=== PATIENT | female | born 1955 | race Caucasian/White ===

== ENCOUNTER 2016-05-23 14:16 | Emergency (ER) | payer OTHER, MEDICARE ==
[~2016-05-23] VITALS: Ht 165.1 cm; Wt 60.0 kg
[~2016-05-23 14:16] MED LIST: ALEN70TA39 PO; DULE100A PO; FURO20 PO; GLUCTAB PO; GUAN2ER PO; LOSA50TA PO; MAGN400 PO; ONDA4; PROT40TA PO; RAPA1TAB PO; SIRO1 PO; VENTAER INH; VITA-13 PO; ZOCO10TA PO
[2016-05-23 14:19] VITALS: BP 149/68; PULSE 69; RESP 14; TEMP 98.4; O2SAT 98
--- NOTE | 2016-05-23 15:14 | RADRPT ---
EXAM DATE/TIME: 05/23/2016 14:34 [place] COMPARISON: No previous studies available for comparison. INDICATIONS : Cough. MEDICAL HISTORY : Chronic obstructive pulmonary disease. Heart murmur. SURGICAL HISTORY : None. ENCOUNTER: Initial ACUITY: 1 day PAIN SCORE: 0/10 LOCATION: Bilateral chest FINDINGS: Right lung is clear. Minimal parenchymal changes are seen in the left base. Heart and pulmonary vas cularity are normal. Portion of bony skeleton visualized is unremarkable. CONCLUSION: Minimal parenchymal changes in left base. This could be an inflammatory process. Basil Hair MD FACR on May 23, 2016 at 15:08 Board Certified Radiologist. This report was verified electronically.
[2016-05-23] MEDS: RESP: ALBUTEROL 2.5 MG/IPRATROPIUM 0.5 MG NEB (SCH) INH ×3 (16:00→16:19)
[2016-05-23] MEDS ORDERED: methylPREDNISolone SOD SUCC 125 MG/2 ML VIAL IVP ONE (16:00)
[2016-05-23] MEDS ORDERED: SODIUM CHLORIDE 0.9% FLUSH 5 ML FLUSH IVF PRN (16:00)
--- NOTE | 2016-05-23 16:05 | PD ---
HPI . Dyspnea Chief Complaint: Respiratory Symptoms Time Seen by Provider: 15:50 Travel History International Travel<30 days: No Contact w/Intl Traveler<30days: No Traveled to known affect area: No History of Present Illness HPI Patient reports pain in her lungs for a week. She is now short of breath. She reports a history of COPD and states that she has inhalers but she has not been using them. She states that the inhalers don't help. She denies any sputum production or fever. PFSH Past Medical History Asthma: No Blood Disorders: No Heart Rhythm Problems: Yes (HEART MUMUR) Cancer: No Cardiac Catheterization: No Cardiovascular Problems: Yes (heart murmur) High Cholesterol: Yes Chemotherapy: No Chest Pain: No Congestive Heart Failure: No COPD: Yes Cerebrovascular Accident: No Diabetes: Yes Patient Takes Glucophage: Yes Diminished Hearing: No Endocrine: No Gastrointestinal Disorders: Yes GERD: Yes Genitourinary: Yes (IGA- NEPHRITIS ) Headaches: No Hypertension: Yes Immune Disorder: No Kidney Stones: No Musculoskeletal: Yes Neurologic: Yes (neuropathy) Psychiatric: No Reproductive: No Respiratory: Yes (COPD) Immunizations Current: Yes Migraines: Yes (Before 2000- None since ) Myocardial Infarction: No Radiation Therapy: No Renal Failure: Yes Seizures: No Sleep Apnea: No Menopausal: Yes Tubal Ligation: Yes Past Surgical History Abdominal Surgery: No AICD: No Arteriovenous Shunt: No Cardiac Surgery: No Coronary Artery Bypass Graft: No Ear Surgery: No Endocrine Surgery: No Eye Surgery: No Genitourinary Surgery: Yes (R KIDNEY TRANSPLANT 2000) Gynecologic Surgery: Yes (TUBAL LIGATION MAR 1982) Insulin Pump: No Joint Replacement: No Neurologic Surgery: No Oral Surgery: No Pacemaker: No Thoracic Surgery: No Other Surgery: Yes Social History Alcohol Use: No Tobacco Use: No Substance Use: No Allergies-Medications (Allergen,Severity, Reaction): Coded Allergies: Neurontin (Verified Allergy, Intermediate, Nausea/Vomiting, 05/23/16) Pramipexole (Verified Adverse Reaction, Severe, vomiting, 05/23/16) Lyrica (Verified Adverse Reaction, Intermediate, vomiting, 05/23/16) Morphine (Verified Adverse Reaction, Intermediate, ITCH, 05/23/16) Reported Meds & Prescriptions Reported Meds & Active Scripts Active Zofran 4 Mg Tab (Ondansetron Hcl) 4 Mg Tab 4 Mg .XX Q8HR PRN Lasix 20 Mg Tab (Furosemide) 20 Mg Tab 20 Mg PO DAILY Reported Dulera 100 mcg/dose (Mometasone Furoate-Formoterol 100 mcg/dose) 100 mcg/ actuation Inh 1 Inh PO DAILY PRN Alendronate Sodium 70 Mg Tab 70 Mg PO Q7D Ventolin Hfa (Albuterol Sulfate) 18 Gm Aero 0 INH BID UNKNOWN DOSE Magnesium Oxide 400 Mg Tab 400 Mg PO BID Vitamin D3 1000 Unit Tab (Cholecalciferol) 1,000 Unit Tab 5,000 Unit PO BID Rapamune 1 mg (Sirolimus) 1 Mg Tab 5 Tab PO DAILY Intuniv (Guanfacine Hcl Er (Adhd)) 2 Mg Tab 2 Mg PO HS Protonix (Pantoprazole Sodium) 40 Mg Tab 40 Mg PO DAILY Metformin (Metformin HCl) 500 Mg Tab 500 Mg PO TID Losartan Potassium 50 MG (Losartan Potassium) 50 Mg Tab 50 Mg PO HS Zocor 10 mg (Simvastatin) 10 Mg Tab 10 Mg PO DAILY Rapamune (Sirolimus) 1 Mg Tab 1 Mg PO 5 TABLETS A DAY Review of Systems Except as stated in HPI: all other systems reviewed are Neg General / Constitutional: No: Fever, Chills Cardiovascular: Positive: Chest Pain or Discomfort Respiratory: Positive: Shortness of Breath Physical Exam Narrative GENERAL: This is a thin woman who is hyperventilating. She seemed short of breath. SKIN: Warm and dry. HEAD: Atraumatic. Normocephalic. EYES: Pupils equal and round. ENT: No nasal bleeding or discharge. Mucous membranes pink and moist. NECK: Trachea midline. Neck is supple. CARDIOVASCULAR: Regular rate and rhythm. Heart sounds are normal. RESPIRATORY: No accessory muscle use. Lungs are actually clear. She does have a very persistent cough. GASTROINTESTINAL: Abdomen soft, non-tender, nondistended. MUSCULOSKELETAL: No obvious deformities. No edema. NEUROLOGICAL: Awake and alert. No obvious cranial nerve deficits. Motor grossly within normal limits. Normal speech. PSYCHIATRIC: Appropriate mood and affect; insight and judgment normal. Data Data Last Documented VS Vital Signs Date Time Temp Pulse Resp B/P Pulse Ox O2 Delivery O2 Flow Rate FiO2 05/23/16 14:19 98.4 69 14 149/68 98 Orders Chest, Single Ap (05/23/16 ) Electrocardiogram (05/23/16 ) Complete Blood Count With Diff (05/23/16 15:50) Comprehensive Metabolic Panel (05/23/16 15:50) Ckmb (Isoenzyme) Profile (05/23/16 15:50) Troponin I (05/23/16 15:50) Iv Access Insert/Monitor (05/23/16 15:50) Ecg Monitoring (05/23/16 15:50) Oximetry (05/23/16 15:50) Oxygen Administration (05/23/16 15:50) Sodium Chloride 0.9% Flush (Ns Flush) (05/23/16 16:00) Methylprednisolone So Succ Inj (Solumedr (05/23/16 16:00) Albuterol-Ipratropium Neb (Duoneb Neb) (05/23/16 16:00) Ceftriaxone Inj (Rocephin Inj) (05/23/16 17:00) Azithromycin Inj (Zithromax Inj) (05/23/16 17:00) CKMB (05/23/16 16:00) CKMB% (05/23/16 16:00) Labs Laboratory Tests Test 05/23/16 16:00 White Blood Count 6.9 TH/MM3 Red Blood Count 3.89 MIL/MM3 Hemoglobin 11.1 GM/DL Hematocrit 31.3 % Mean Corpuscular Volume 80.4 FL Mean Corpuscular Hemoglobin 28.5 PG Mean Corpuscular Hemoglobin 35.4 % Concent Red Cell Distribution Width 15.5 % Platelet Count 370 TH/MM3 Mean Platelet Volume 7.1 FL Neutrophils (%) (Auto) 69.8 % Lymphocytes (%) (Auto) 17.6 % Monocytes (%) (Auto) 10.2 % Eosinophils (%) (Auto) 0.5 % Basophils (%) (Auto) 1.9 % Neutrophils # (Auto) 4.8 TH/MM3 Lymphocytes # (Auto) 1.2 TH/MM3 Monocytes # (Auto) 0.7 TH/MM3 Eosinophils # (Auto) 0.0 TH/MM3 Basophils # (Auto) 0.1 TH/MM3 CBC Comment DIFF FINAL Differential Comment Sodium Level 136 MEQ/L Potassium Level 3.8 MEQ/L Chloride Level 102 MEQ/L Carbon Dioxide Level 23.1 MEQ/L Anion Gap 11 MEQ/L Blood Urea Nitrogen 9 MG/DL Creatinine 0.79 MG/DL Estimat Glomerular Filtration 74 ML/MIN Rate Random Glucose 118 MG/DL Calcium Level 8.6 MG/DL Total Bilirubin 0.3 MG/DL Aspartate Amino Transf 17 U/L (AST/SGOT) Alanine Aminotransferase 20 U/L (ALT/SGPT) Alkaline Phosphatase 135 U/L Total Creatine Kinase 105 U/L Creatine Kinase MB 0.7 NG/ML Troponin I LESS THAN 0.02 NG/ML Total Protein 7.5 GM/DL Albumin 3.2 GM/DL [facility] Medical Decision Making Medical Screen Exam Complete: Yes Emergency Medical Condition: Yes Interpretation(s) Her EKG shows a normal sinus rhythm with no ST segment elevation or depression. Differential Diagnosis Differential diagnosis of dyspnea includes but is not limited to congestive heart failure, pneumonia, wheezing, pneumothorax, pulmonary embolism Narrative Course Patient with a history of COPD presents with chest discomfort and shortness of breath. However, she has multiple other underlying medical conditions including hypertension, diabetes, previous kidney transplant. CXR--> "Minimal parenchymal changes in left base. This could be an inflammatory process. " The chest x-ray was independently viewed by me. CBC has a white count of 6.9. H&H is 11.1 and 31.3. Chemistries are unremarkable. Cardiac enzymes are negative. Patient feels much better and would like to be treated as an outpatient if possible. Her lungs have good air movement and the persistent cough has improved with treatment. Critical Care Narrative Aggregate critical care time was [-] minutes. Time to perform other separately billable procedures was not included in the critical care time. My time did not include minutes spent treating any other patients simultaneously or on activities that did not directly contribute to the patient's treatment. The services I provided to this patient were to treat and/or prevent clinically significant deterioration that could result in: Respiratory failure or arrest, cardiovascular collapse, lethal dysrhythmia I provided critical care services requiring my management, as noted below: Chart data review, documentation time, medication orders and management, vital sign assessments/reviewing monitor data, ordering and reviewing lab tests, ordering and interpreting/reviewing x-rays and diagnostic studies, care of the patient and discussion of the patient with the admitting physicians. Diagnosis Primary Impression: Bronchitis Patient Instructions: Bronchospasm (ED), General Instructions Med/Other Pt SpecificInfo: Prescription(s) given Scripts Prednisone (21) 10 mg tab Dose Pack 10 Mg Pack10 Mg PO DIRECTED #1 DSPK Ref 0 Prov:Chantal Qiu MD 05/23/16 Azithromycin (Zithromax)250 Mg Qsq099 Mg PO DAILY #4 TAB Ref 0 Prov:Chantal Qiu MD 05/23/16 Disposition: 01 DISCHARGE HOME Condition: Stable Chantal Qiu MD May 23, 2016 16:05
[2016-05-23 16:32] LABS: AUTOMATED NEUTROPHIL # 4.8 TH/MM3 (1.8-7.7); BASOPHIL # 0.1 TH/MM3 (0-0.2); BASOPHIL % 1.9 % (0.0-2.0); EOSINOPHIL % 0.5 % (0.0-4.0); HEMATOCRIT 31.3 % (35.0-46.0); HEMO FLAGS DIFF FINAL; LYMPH % 17.6 % (9.0-44.0); LYMPHOCYTE # 1.2 TH/MM3 (1.0-4.8); MEAN CELL VOLUME 80.4 FL (80.0-100.0); MEAN CORPUSCULAR HEMOGLOBIN 28.5 PG (27.0-34.0); MEAN CORPUSCULAR HGB CONC 35.4 % (32.0-36.0); MONO % 10.2 % (0.0-8.0); NEUT % 69.8 % (16.0-70.0); PLATELET COUNT 370 TH/MM3 (150-450); RED BLOOD COUNT 3.89 MIL/MM3 (4.00-5.30); RED CELL DISTRIBUTION WIDTH 15.5 % (11.6-17.2); WHITE BLOOD COUNT 6.9 TH/MM3 (4.0-11.0)
[2016-05-23 16:57] LABS: ANION GAP 11 MEQ/L (5-15); AST (GOT) 17 U/L (15-37); BICARBONATE 23.1 MEQ/L (21.0-32.0); BLOOD UREA NITROGEN 9 MG/DL (7-18); CHLORIDE 102 MEQ/L (98-107); GLOMERULAR FILTRATION RATE 74 ML/MIN (>89); POTASSIUM 3.8 MEQ/L (3.5-5.1); SODIUM (NA) 136 MEQ/L (136-145)
[2016-05-23] MEDS ORDERED: cefTRIAXone INJ 1,000 MG in SODIUM CHLORIDE 0.9% INJ 100 ML IV ONE (17:00)
[2016-05-23] MEDS ORDERED: AZITHROMYCIN INJ 500 MG in SODIUM CHLOR 0.9% 250 ML INJ 250 ML IV ONE (17:00)
[2016-05-23 17:01] LABS: ALKALINE PHOSPHATASE 135 U/L (45-117); ALT (GPT) 20 U/L (10-53); CREATINE KINASE 105 U/L (26-192); TOTAL BILIRUBIN ADULT 0.3 MG/DL (0.2-1.0)
[2016-05-23 17:13] LABS: CKMB 0.7 NG/ML (0.5-3.6)
[2016-05-23] MEDS ORDERED: PRED10PA PO (17:38)
[2016-05-23] MEDS ORDERED: ZITH250T PO (17:38)
[2016-05-23 18:00] VITALS: BP 157/71; PULSE 78; RESP 20; O2SAT 97
--- NOTE | 2016-05-23 21:30 | EKG ---
Date Performed: 05/23/2016 Time Performed: 15:29:44 PTAGE: 60 years EKG: Sinus rhythm WITH MARKED SINUS ARRHYTHMIA BORDERLINE ECG PREVIOUS TRACING : 07/10/2013 20.05 No significant change from previous tracing noted. DOCTOR: Durga Gutierrez Interpretating Date/Time 05/23/2016 21:29:20
== END 2016-05-23 19:32 | disposition home or self-care (01) ==
LOC: NEPA 14:16
DX: J40 Bronchitis, not specified as acute or chronic (principal); R94.31 Abnormal electrocardiogram [ECG] [EKG]; E78.00 Pure hypercholesterolemia, unspecified; J44.9 Chronic obstructive pulmonary disease, unspecified; E11.9 Type 2 diabetes mellitus without complications; I10 Essential (primary) hypertension
CPT/HCPCS: 71010; 80053; 82550; 82552; 84484; 85025; 93005; 94640; 94664; 96374; 96375; 99291; J0456; J0696; J2930; J7050

== ENCOUNTER 2016-05-29 05:36 | Emergency (ER) | payer OTHER, MEDICARE ==
[~2016-05-29] VITALS: Ht 165.1 cm; Wt 60.0 kg
[~2016-05-29 05:36] MED LIST changes: +PRED10PA PO; +ZITH250T PO
[2016-05-29 05:38] VITALS: BP 190/80; PULSE 65; RESP 14; TEMP 97.7; O2SAT 94
[2016-05-29] MEDS ORDERED: ACETAMINOPHEN/HYDROcodone 325 MG/5 MG TAB PO ONE (06:00)
[2016-05-29] MEDS ORDERED: ROBA500T PO (06:00)
[2016-05-29] MEDS ORDERED: HYDR-3533 PO (06:00)
--- NOTE | 2016-05-29 06:09 | PD ---
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 She also has a history of a kidney transplant. She states that she was working in the yard on . She woke up with worsening pain in her lower back and into her hips and legs. Pain is moderate but can be severe. Worse with bending and movement. Dr. Cummins typically will give her Lortab for her pain. She states that although other medications do not tend to work. She cannot take NSAIDs. She denies any focal numbness or tingling. No bowel or bladder changes. PFSH Past Medical History Asthma: No Blood Disorders: No Heart Rhythm Problems: Yes (HEART MUMUR) Cancer: No Cardiac Catheterization: No Cardiovascular Problems: Yes (HTN) High Cholesterol: Yes Chemotherapy: No Chest Pain: No Congestive Heart Failure: No COPD: Yes Cerebrovascular Accident: No Diabetes: Yes Patient Takes Glucophage: No Diminished Hearing: No Endocrine: No Gastrointestinal Disorders: Yes GERD: Yes Genitourinary: Yes (IGA- NEPHRITIS ) Headaches: No Heparin Induced Thrombocytopen: No Hypertension: Yes Immune Disorder: No Implanted Vascular Access Dvce: No Kidney Stones: No Musculoskeletal: Yes Neurologic: Yes (neuropathy) Psychiatric: No Reproductive: No Respiratory: Yes (COPD) Immunizations Current: Yes Migraines: Yes (Before 2000- None since ) Myocardial Infarction: No Radiation Therapy: No Renal Failure: Yes Seizures: No Sleep Apnea: No Tetanus Vaccination: > 5 Years Influenza Vaccination: Yes Menopausal: Yes Tubal Ligation: Yes Past Surgical History Abdominal Surgery: No AICD: No Arteriovenous Shunt: No Cardiac Surgery: No Coronary Artery Bypass Graft: No Ear Surgery: No Endocrine Surgery: No Eye Surgery: No Genitourinary Surgery: Yes (R KIDNEY TRANSPLANT 2000) Gynecologic Surgery: Yes (TUBAL LIGATION MAR 1982) Insulin Pump: No Joint Replacement: No Neurologic Surgery: No Oral Surgery: No Pacemaker: No Thoracic Surgery: No Other Surgery: Yes Social History Alcohol Use: No Tobacco Use: No Substance Use: No Allergies-Medications (Allergen,Severity, Reaction): Coded Allergies: Neurontin (Verified Allergy, Intermediate, Nausea/Vomiting, 05/29/16) Pramipexole (Verified Adverse Reaction, Severe, vomiting, 05/29/16) Lyrica (Verified Adverse Reaction, Intermediate, vomiting, 05/29/16) Morphine (Verified Adverse Reaction, Intermediate, ITCH, 05/29/16) Reported Meds & Prescriptions Reported Meds & Active Scripts Active Prednisone (21) 10 mg tab Dose Pack (Prednisone) 10 Mg Pack 10 Mg PO DIRECTED Zithromax (Azithromycin) 250 Mg Tab 250 Mg PO DAILY Zofran 4 Mg Tab (Ondansetron Hcl) 4 Mg Tab 4 Mg .XX Q8HR PRN Lasix 20 Mg Tab (Furosemide) 20 Mg Tab 20 Mg PO DAILY Reported Dulera1 Aer 100 mcg/actuation Inh 1 Inh PO DAILY PRN Alendronate Sodium 70 Mg Tab 70 Mg PO Q7D [id number] 18 Gm Aero 0 INH BID UNKNOWN DOSE Mag-Ox 400 (Magnesium Oxide) 400 Mg Tab 400 Mg PO BID Vitamin D3 (Cholecalciferol) 1,000 Unit Tab 5,000 Unit PO BID Rapamune 1 Mg T1 Mg 1 Mg Tab 5 Tab PO DAILY Intuniv (Guanfacine Hcl Er (Adhd)) 2 Mg Tab 2 Mg PO HS Protonix (Pantoprazole Sodium) 40 Mg Tab 40 Mg PO DAILY Glucophage XR 24 HR (Metformin HCl) 500 Mg Tab 500 Mg PO TID Losartan [id number] M1 50 Mg Tab 50 Mg PO HS Zocor 10 mg (Simvastatin) 10 Mg Tab 10 Mg PO DAILY Rapamune (Sirolimus) 1 Mg Tab 1 Mg PO 5 TABLETS A DAY Review of Systems Except as stated in HPI: all other systems reviewed are Neg Physical Exam Narrative GENERAL: This is a well-nourished, well-developed patient, in no apparent distress. SKIN: No rashes, ecchymoses or lesions. Warm and dry. HEAD: Atraumatic. Normocephalic. EYES: PERRL, EOMI, no discharge or injection. No scleral icterus. EARS: Clear NOSE: Nasal turbinates appear normal. THROAT: Mucosa pink and moist. Airway patent. NECK: Trachea midline. supple, moves head freely. LUNGS: Clear to auscultation. CV: Regular in rhythm. ABDOMEN: Soft nontender. EXT: No clubbing cyanosis or edema. No pain on palpation of the greater trochanters. She does complain some mild discomfort with hip rotation. She has no saddle anesthesia. Back: No central bony tenderness to palpation. She has bilateral paralumbar and lower buttock pain bilaterally. No gross spasm. Data Data Last Documented VS Vital Signs Date Time Temp Pulse Resp B/P Pulse Ox O2 Delivery O2 Flow Rate FiO2 05/29/16 05:55 16 05/29/16 05:38 97.7 65 190/80 94 Room Air Orders Acetamin-Hydrocod 325-5 Mg ([place] 5-325 (05/29/16 06:00) MDM Medical Decision Making Medical Screen Exam Complete: Yes Emergency Medical Condition: Yes Medical Record Reviewed: Yes Differential Diagnosis MDM: High Differential diagnoses: Fracture, sprain, strain, HNP, nerve or vascular injury , epidural abscess, pilonidal cyst Narrative Course Patient given Lortab 5 mg by mouth. This is acute exacerbation of chronic back pain Diagnosis Primary Impression: Acute exacerbation of chronic low back pain Patient Instructions: Narcotic given in the ED, General Instructions Additional Instructions: Rest. Ice for the next 3 days followed by heat . Robaxin and Lortab.. Follow-up with a primary care doctor in one week. Return to the ER for emergencies. Med/Other Pt SpecificInfo: Prescription(s) given Scripts Hydrocodone-Acetaminophen (Lortab)5-325 Mg Tab1 Tab PO Q6H PRN (PAIN) #20 TAB Prov:Daquan Khan MD 05/29/16 Methocarbamol (Robaxin)500 Mg Bth024 Mg PO QID #28 TAB Prov:Daquan Khan MD 05/29/16 Disposition: 01 DISCHARGE HOME Condition: Stable Mike Topete May 29, 2016 06:09
[2016-05-30] MEDS ORDERED: PERC5TAB12 PO (11:32)
[2016-05-30] MEDS ORDERED: PROP20TA3 PO (11:41)
[2016-05-30] MEDS ORDERED: RAPA1TAB PO (11:41)
[2016-05-30] MEDS ORDERED: ZOCO10TA PO (11:41)
[2016-05-30] MEDS ORDERED: GLIM2TAB PO (11:41)
[2016-05-30] MEDS ORDERED: MAGN400T2 PO (11:43)
[2016-05-30] MEDS ORDERED: PANT40TA3 PO (11:43)
[2016-05-30] MEDS ORDERED: METF500T4 PO (11:43)
[2016-05-30] MEDS ORDERED: GUAN2ER PO (11:44)
[2016-05-30] MEDS ORDERED: LOSA50TA PO (11:47)
[2016-05-30] MEDS ORDERED: CHOL5000 PO (11:47)
[2016-05-30] MEDS ORDERED: VENTAER INH (11:50)
[2016-05-30] MEDS ORDERED: ALEN1TAB48 PO (11:51)
== END 2016-05-29 06:25 | disposition home or self-care (01) ==
LOC: NEPB 05:36
DX: M54.5 Low back pain (principal); G89.29 Other chronic pain; I10 Essential (primary) hypertension; E78.00 Pure hypercholesterolemia, unspecified; J44.9 Chronic obstructive pulmonary disease, unspecified; E11.9 Type 2 diabetes mellitus without complications
CPT/HCPCS: 99283

== ENCOUNTER 2016-05-30 10:01 | Emergency (ER) | payer OTHER, MEDICARE ==
[~2016-05-30] VITALS: Ht 165.1 cm; Wt 65.0 kg
[~2016-05-30 10:01] MED LIST changes: +HYDR-3533 PO; +ROBA500T PO
[2016-05-30 10:03] VITALS: BP 183/86; PULSE 62; RESP 18; TEMP 97.9; O2SAT 98
[2016-05-30] MEDS ORDERED: PERC5TAB12 PO (11:32)
--- NOTE | 2016-05-30 11:33 | PD ---
HPI Chief Complaint: Pain: Acute or Chronic Time Seen by Provider: 11:32 Travel History International Travel<30 days: No Contact w/Intl Traveler<30days: No Traveled to known affect area: No History of Present Illness HPI 60-year-old female with a history of hypertension, hyperlipidemia, COPD, renal transplant presents to the emergency department for evaluation of bilateral lower back and hip pain as well as bilateral knee pain for 4 days. 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 Denies any injury or trauma to her back or knees. Patient states that 4 days ago she was pulling weeds in her yard and afterward had lower back and bilateral hip pain with knee pain. States that she was bent over pulling weeds, was not on her knees. States that the pain is worsening over the past several days. States that the pain in her knees shoots up to her hips and down to her feet. Describes the pain as a throbbing pain that is constant. States that she was seen in our emergency department last night and given prescriptions for Lortab and Robaxin. States last night she took 3 Lortab within 6 hours and had no improvement of her symptoms. She denies fever, chills, nausea, vomiting, numbness or tingling , weakness, saddle anesthesia, bowel or bladder incontinence. States she is here to get pain relief. No other complaints. PFSH Past Medical History Asthma: No Blood Disorders: No Heart Rhythm Problems: Yes (HEART MUMUR) Cancer: No Cardiac Catheterization: No Cardiovascular Problems: Yes (HTN) High Cholesterol: Yes Chemotherapy: No Chest Pain: No Congestive Heart Failure: No COPD: Yes Cerebrovascular Accident: No Diabetes: Yes Diminished Hearing: No Endocrine: No Gastrointestinal Disorders: Yes GERD: Yes Genitourinary: Yes (IGA- NEPHRITIS ) Headaches: No Heparin Induced Thrombocytopen: No Hypertension: Yes Immune Disorder: No Implanted Vascular Access Dvce: No Kidney Stones: No Musculoskeletal: Yes Neurologic: Yes (neuropathy) Psychiatric: No Reproductive: No Respiratory: Yes Immunizations Current: Yes Migraines: Yes (Before 2000- None since ) Myocardial Infarction: No Radiation Therapy: No Renal Failure: Yes Seizures: No Sleep Apnea: No ?: Not Menopausal: Yes Tubal Ligation: Yes Past Surgical History Abdominal Surgery: No AICD: No Arteriovenous Shunt: No Cardiac Surgery: No Coronary Artery Bypass Graft: No Ear Surgery: No Endocrine Surgery: No Eye Surgery: No Genitourinary Surgery: Yes (R KIDNEY TRANSPLANT 2000) Gynecologic Surgery: Yes (TUBAL LIGATION MAR 1982) Insulin Pump: No Joint Replacement: No Neurologic Surgery: No Oral Surgery: No Pacemaker: No Thoracic Surgery: No Other Surgery: Yes Social History Alcohol Use: No Tobacco Use: No Substance Use: No Allergies-Medications (Allergen,Severity, Reaction): Coded Allergies: Neurontin (Verified Allergy, Intermediate, Nausea/Vomiting, 05/30/16) Pramipexole (Verified Adverse Reaction, Severe, vomiting, 05/30/16) Lyrica (Verified Adverse Reaction, Intermediate, vomiting, 05/30/16) Morphine (Verified Adverse Reaction, Intermediate, ITCH, 05/30/16) Reported Meds & Prescriptions Reported Meds & Active Scripts Active Percocet (Oxycodone-Acetaminophen) 5-325 mg Tab 1-2 Tab PO Q6H PRN Lortab (Hydrocodone-Acetaminophen) 5-325 Mg Tab 1 Tab PO Q6H PRN Robaxin (Methocarbamol) 500 Mg Tab 500 Mg PO QID Prednisone (21) 10 mg tab Dose Pack (Prednisone) 10 Mg Pack 10 Mg PO DIRECTED Zithromax (Azithromycin) 250 Mg Tab 250 Mg PO DAILY Zofran 4 Mg Tab (Ondansetron Hcl) 4 Mg Tab 4 Mg .XX Q8HR PRN Lasix 20 Mg Tab (Furosemide) 20 Mg Tab 20 Mg PO DAILY Reported Dulera1 Aer 100 mcg/actuation Inh 1 Inh PO DAILY PRN Alendronate Sodium 70 Mg Tab 70 Mg PO Q7D [id number] 18 Gm Aero 0 INH BID UNKNOWN DOSE Mag-Ox 400 (Magnesium Oxide) 400 Mg Tab 400 Mg PO BID Vitamin D3 (Cholecalciferol) 1,000 Unit Tab 5,000 Unit PO BID Rapamune 1 Mg T1 Mg 1 Mg Tab 5 Tab PO DAILY Intuniv (Guanfacine Hcl Er (Adhd)) 2 Mg Tab 2 Mg PO HS Protonix (Pantoprazole Sodium) 40 Mg Tab 40 Mg PO DAILY Glucophage XR 24 HR (Metformin HCl) 500 Mg Tab 500 Mg PO TID Losartan [id number] M1 50 Mg Tab 50 Mg PO HS Zocor 10 mg (Simvastatin) 10 Mg Tab 10 Mg PO DAILY Rapamune (Sirolimus) 1 Mg Tab 1 Mg PO 5 TABLETS A DAY Review of Systems Except as stated in HPI: all other systems reviewed are Neg Physical Exam Narrative GENERAL: Well-nourished and well-developed pleasant female patient in no acute distress who is nontoxic appearing. SKIN: Warm and dry. HEAD: Normocephalic and atraumatic. EYES: No injection, drainage, or hyphema noted. PERRLA. EOMI. ENT: No nasal drainage noted. Oropharynx is clear. NECK: Supple and the trachea is midline. CARDIOVASCULAR: Regular rate and rhythm. RESPIRATORY: Breath sounds are equal bilaterally with no accessory muscle use, wheezing, rhonchi, or crackles. GASTROINTESTINAL: Abdomen is soft, non-tender, and nondistended. MUSCULOSKELETAL: Mild tenderness to palpation over her SI joints bilaterally, mild tenderness to palpation over knees bilaterally. There is no erythema, swelling, warmth of any joints. Patient has full range of motion in all joints.No obvious deformities, swelling, cyanosis, or ecchymosis is present throughout the upper and lower extremities. Patient has full range of motion without any signs of neurovascular compromise. Strength 5/5 upper and lower extremities and equal bilaterally. BACK: Nontender without any obvious deformities, bony point tenderness, or crepitus noted throughout the thoracic and lumbar vertebrae. NEUROLOGICAL: Awake, alert, and oriented. Normal speech and gait. Cranial nerves are grossly intact. Data Data Last Documented VS Vital Signs Date Time Temp Pulse Resp B/P Pulse Ox O2 Delivery O2 Flow Rate FiO2 05/30/16 10:03 97.9 62 18 183/86 98 Orders Hydromorphone Pf Inj (Dilaudid Pf Inj) (05/30/16 11:45) [facility] Medical Decision Making Medical Screen Exam Complete: Yes Emergency Medical Condition: Yes Differential Diagnosis Osteoarthritis versus discogenic pain versus spondylolisthesis versus muscle strain versus muscle spasm Narrative Course 60-year-old female presents to the emergency department for evaluation of low back pain/hip pain and bilateral knee pain. Patient is afebrile, vital signs are stable. This pain began after she was pulling weeds on at her house. No traumatic injury. Physical examination does not reveal any objective evidence of inflammation or bony abnormality. She has no red flag signs or symptoms to indicate emergent imaging. She is here for symptom relief. She is allergic to morphine and cannot tolerate NSAIDs due to renal transplant and therefore we'll give her Dilaudid 1 mg IM here in the ED. She' ll be prescribed Percocet, instructed to stop taking the Lortab. Instructed to follow-up with her PCP. She verbalizes understanding and agreement with treatment plan. I discussed the case with my attending physician Dr. Abreu who is aware of the patients history, physical examination findings, and treatment plan. Diagnosis Primary Impression: Acute exacerbation of chronic low back pain Additional Impression: Knee pain, bilateral Qualified Code: M25.561 - Acute pain of both knees Referrals: Primary Care Physician 2 days Patient Instructions: General Instructions, Narcotic given in the ED Additional Instructions: Stop taking Lortab. Start taking Percocet. Take medication as prescribed. Do not take with alcohol or while driving. Follow-up with your Primary Care Physician. Return to the ED for any acute worsening of symptoms. Med/Other Pt SpecificInfo: Prescription(s) given Scripts Oxycodone-Acetaminophen (Percocet)5-325 mg Tab1-2 Tab PO Q6H PRN (PAIN GREATER THAN 6) #20 TAB Ref 0 Prov:Michael Abreu MD 05/30/16 Disposition: 01 DISCHARGE HOME Condition: Stable Joyce Perez May 30, 2016 11:33
[2016-05-30] MEDS ORDERED: PROP20TA3 PO (11:41)
[2016-05-30] MEDS ORDERED: ZOCO10TA PO (11:41)
[2016-05-30] MEDS ORDERED: GLIM2TAB PO (11:41)
[2016-05-30] MEDS ORDERED: RAPA1TAB PO (11:41)
[2016-05-30] MEDS ORDERED: PANT40TA3 PO (11:43)
[2016-05-30] MEDS ORDERED: METF500T4 PO (11:43)
[2016-05-30] MEDS ORDERED: MAGN400T2 PO (11:43)
[2016-05-30] MEDS ORDERED: GUAN2ER PO (11:44)
[2016-05-30] MEDS ORDERED: HYDROmorphone HCL PF 1 MG/ML VIAL IM ONE (11:45)
[2016-05-30] MEDS ORDERED: LOSA50TA PO (11:47)
[2016-05-30] MEDS ORDERED: CHOL5000 PO (11:47)
[2016-05-30] MEDS ORDERED: VENTAER INH (11:50)
[2016-05-30] MEDS ORDERED: ALEN1TAB48 PO (11:51)
[2016-05-30] MEDS ORDERED: ONDANSETRON ODT 4 MG TAB PO ONE (13:00)
== END 2016-05-30 13:41 | disposition home or self-care (01) ==
LOC: NEPB 10:01
DX: M54.5 Low back pain (principal); M25.561 Pain in right knee; M25.562 Pain in left knee; N18.6 End stage renal disease; I12.0 Hypertensive chronic kidney disease with stage 5 chronic kidney disease or end stage renal disease; E11.22 Type 2 diabetes mellitus with diabetic chronic kidney disease; Z94.0 Kidney transplant status; E78.5 Hyperlipidemia, unspecified; J44.9 Chronic obstructive pulmonary disease, unspecified; E78.00 Pure hypercholesterolemia, unspecified; Z79.4 Long term (current) use of insulin
CPT/HCPCS: 96372; 99283; J1170

== ENCOUNTER 2016-10-16 17:01 | Emergency (ER) | payer OTHER, MEDICARE ==
[~2016-10-16] VITALS: Ht 165.1 cm; Wt 64.0 kg
[~2016-10-16 17:01] MED LIST changes: +ALEN1TAB48 PO; -ALEN70TA39 PO; +CHOL5000 PO; -DULE100A PO; -FURO20 PO; +GLIM2TAB PO; -GLUCTAB PO; -MAGN400 PO; +MAGN400T2 PO; +METF500T4 PO; -ONDA4; +PANT40TA3 PO; +PERC5TAB12 PO; -PRED10PA PO; +PROP20TA3 PO; -PROT40TA PO; -SIRO1 PO; -VITA-13 PO; -ZITH250T PO
[2016-10-16 17:03] VITALS: BP 156/94; PULSE 66; RESP 15; TEMP 97.8; O2SAT 100
[2016-10-16] MEDS ORDERED: DULE100A INH (17:36)
--- NOTE | 2016-10-16 18:17 | PD ---
HPI Chief Complaint: Eye Problems/Injury Time Seen by Provider: 17:50 Travel History International Travel<30 days: No Contact w/Intl Traveler<30days: No Traveled to known affect area: No History of Present Illness HPI 60-year-old female presents emergency department for evaluation of a left red eye. She reports after waking up this morning she noticed the sclera portion of her eye was red. She denies trauma. She recently had a subconjunctival hemorrhage in the same eye approximately 2 months ago which spontaneously resolved. She denies trauma. She denies visual disturbance the eye. She reports mild intermittent pain. Patient is not anticoagulated. Visual acuity left eye 20/30. Right eye 20/25. Both eyes 20/25. PFSH Past Medical History Narrative Medical Significant for hypertension, kidney transplant, high cholesterol, COPD Asthma: No Blood Disorders: No Heart Rhythm Problems: Yes (HEART MUMUR) Cancer: No Cardiac Catheterization: No Cardiovascular Problems: Yes (HTN) High Cholesterol: Yes Chemotherapy: No Chest Pain: No Congestive Heart Failure: No COPD: Yes Cerebrovascular Accident: No Diabetes: Yes Patient Takes Glucophage: Yes Diminished Hearing: No Endocrine: No Gastrointestinal Disorders: Yes GERD: Yes Genitourinary: Yes (IGA- NEPHRITIS ) Headaches: No Heparin Induced Thrombocytopen: No Hypertension: Yes Immune Disorder: No Implanted Vascular Access Dvce: No Kidney Stones: No Musculoskeletal: Yes Neurologic: Yes (neuropathy) Psychiatric: No Reproductive: No Respiratory: Yes Immunizations Current: Yes Migraines: Yes (Before 2000- None since ) Myocardial Infarction: No Radiation Therapy: No Renal Failure: Yes Seizures: No Sleep Apnea: No Tetanus Vaccination: Unknown Influenza Vaccination: Yes ?: Not Menopausal: Yes Tubal Ligation: Yes Past Surgical History Abdominal Surgery: No AICD: No Arteriovenous Shunt: No Cardiac Surgery: No Coronary Artery Bypass Graft: No Ear Surgery: No Endocrine Surgery: No Eye Surgery: No Genitourinary Surgery: Yes (R KIDNEY TRANSPLANT 2000) Gynecologic Surgery: Yes (TUBAL LIGATION MAR 1982) Insulin Pump: No Joint Replacement: No Neurologic Surgery: No Oral Surgery: No Pacemaker: No Thoracic Surgery: No Other Surgery: Yes Social History Alcohol Use: No Tobacco Use: No Substance Use: No Allergies-Medications (Allergen,Severity, Reaction): Coded Allergies: Neurontin (Verified Allergy, Intermediate, Nausea/Vomiting, 10/16/16) Pramipexole (Verified Adverse Reaction, Severe, vomiting, 10/16/16) Lyrica (Verified Adverse Reaction, Intermediate, vomiting, 10/16/16) Morphine (Verified Adverse Reaction, Intermediate, ITCH, 10/16/16) Reported Meds & Prescriptions Reported Meds & Active Scripts Active Reported Dulera 120 Act Inh (Mometasone-Formoterol 120 Act Inh) 100-5 Mcg/Act Inh 2 Puff INH BID Alendronate (Alendronate Sodium) 70 Mg Tab 70 Mg PO Q7D Ventolin Hfa 18 GM Inh (Albuterol Sulfate) 90 Mcg/Act Aer 1 Puff INH BID PRN Vitamin D3 (Cholecalciferol) 5,000 Unit Cap 5,000 Units PO DAILY Losartan (Losartan Potassium) 50 Mg Tab 50 Mg PO BID Intuniv (Guanfacine HCl) 2 Mg Chris 2 Mg PO HS Do not crush, chew or divide tablet. Take with a meal. Metformin ER (Metformin HCl) 500 Mg Chris 500 Mg PO TID With evening meal Pantoprazole (Pantoprazole Sodium) 40 Mg Tab 40 Mg PO DAILY Rapamune (Sirolimus) 1 Mg Tab 5 Mg PO DAILY Zocor (Simvastatin) 10 Mg Tab 20 Mg PO HS Glimepiride 2 Mg Tab 1 Mg PO DAILY Propranolol (Propranolol HCl) 20 Mg Tab 20 Mg PO HS Review of Systems Except as stated in HPI: all other systems reviewed are Neg Physical Exam Narrative GENERAL: Alert, well-appearing female in no acute distress. SKIN: Focused skin assessment warm/dry. No rashes HEAD: Atraumatic. Normocephalic. EYES: Pupils equal and round. No scleral icterus. No injection or drainage. Subconjunctival hemorrhage present from 5-9 o'clock. No hyphema. Corneas are clear. No fluorescein dye uptake. IOP left eye 15, right eye 18. EOMs intact. ENT: No nasal bleeding or discharge. Mucous membranes pink and moist. NECK: Trachea midline. No JVD. CARDIOVASCULAR: Regular rate and rhythm. No murmur appreciated. RESPIRATORY: No accessory muscle use. Clear to auscultation. Breath sounds equal bilaterally. GASTROINTESTINAL: Abdomen soft, non-tender, nondistended. Hepatic and splenic margins not palpable. MUSCULOSKELETAL: No obvious deformities. No clubbing. No cyanosis. No edema. NEUROLOGICAL: Awake and alert. No obvious cranial nerve deficits. Motor grossly within normal limits. Normal speech. PSYCHIATRIC: Appropriate mood and affect; insight and judgment normal. Data Data Last Documented VS Vital Signs Date Time Temp Pulse Resp B/P Pulse Ox O2 Delivery O2 Flow Rate FiO2 10/16/16 17:03 97.8 66 15 156/94 100 MDM Medical Decision Making Medical Screen Exam Complete: Yes Emergency Medical Condition: Yes Medical Record Reviewed: Yes Differential Diagnosis Subconjunctival hemorrhage, corneal abrasion, acute closure glaucoma Narrative Course 60-year-old female presents emergency department for evaluation of the left red eye. She reports after waking up this morning she noticed the sclera portion of her eye was red. She recently had a subconjunctival hemorrhage in the same eye approximately 2 months ago. She denies trauma. She denies visual disturbance the eye. She reports mild intermittent pain. On exam the patient has a left subconjunctival hemorrhage located at 5-9 O'clock. No evidence of corneal abrasion. Normal pressure in the eye. Painless extraocular movements. Normal visual acuity. Patient instructed to follow up with her primary doctor or tooth polisher this week. Return to the emergency department should she develop new worsening symptoms. Diagnosis Primary Impression: Subconjunctival hemorrhage of left eye Referrals: Mold Carpenter Additional Instructions: Return to the emergency department if you developed new or worsening symptoms. Follow up with her primary doctor or tooth polisher for recheck this week. Disposition: 01 DISCHARGE HOME Condition: Stable Joanne Diaz Oct 16, 2016 18:17
== END 2016-10-16 18:44 | disposition home or self-care (01) ==
LOC: PHEFT 17:01
DX: H11.32 Conjunctival hemorrhage, left eye (principal); J44.9 Chronic obstructive pulmonary disease, unspecified; I10 Essential (primary) hypertension; E78.00 Pure hypercholesterolemia, unspecified; Z94.0 Kidney transplant status; K21.9 Gastro-esophageal reflux disease without esophagitis
CPT/HCPCS: 99283

== ENCOUNTER 2017-04-15 19:39 | Emergency (ER) | payer OTHER, MEDICARE ==
[~2017-04-15] VITALS: Ht 165.1 cm; Wt 60.0 kg
[~2017-04-15 19:39] MED LIST changes: +DULE100A INH; -HYDR-3533 PO; -MAGN400T2 PO; -PERC5TAB12 PO; -ROBA500T PO
[2017-04-15 19:40] VITALS: BP 196/88; PULSE 65; RESP 16; TEMP 97.9; O2SAT 99
--- NOTE | 2017-04-15 21:34 | PD ---
HPI Chief Complaint: Bleeding Time Seen by Provider: 20:26 Travel History International Travel<30 days: No Contact w/Intl Traveler<30days: No Traveled to known affect area: No History of Present Illness HPI Patient is a 61-year-old female with excision of basal cell carcinoma from her right evangelical area today about 1:00 in the afternoon a running stitch was used by the salon receptionist to close the undermined skin after the excision. She went home and however leaned over to having a light on her tree and bleeding began where he had done the edges of the lateral canthus area of her eye she was using drops of blood onto her glasses and they come to the ER. In the ER bandage is taken down and a Steri-Strip was placed over the very corner of the eye and pressure was applied by this Sarah. She has no pain she has no visual changes it is just that leading from the surgery postoperative complication of bleeding PFSH Past Medical History Asthma: No Blood Disorders: No Heart Rhythm Problems: Yes (HEART MUMUR) Cancer: No Cardiac Catheterization: No Cardiovascular Problems: Yes (HTN) High Cholesterol: Yes Chemotherapy: No Chest Pain: No Congestive Heart Failure: No COPD: Yes Cerebrovascular Accident: No Diabetes: Yes Diminished Hearing: No Endocrine: No Gastrointestinal Disorders: Yes GERD: Yes Genitourinary: Yes (IGA- NEPHRITIS ) Headaches: No Heparin Induced Thrombocytopen: No Hypertension: Yes Immune Disorder: No Implanted Vascular Access Dvce: No Kidney Stones: No Musculoskeletal: Yes Neurologic: Yes (neuropathy) Psychiatric: No Reproductive: No Respiratory: Yes Immunizations Current: Yes Migraines: Yes (Before 2000- None since ) Myocardial Infarction: No Radiation Therapy: No Renal Failure: Yes Seizures: No Sleep Apnea: No Menopausal: Yes Tubal Ligation: Yes Past Surgical History Abdominal Surgery: No AICD: No Arteriovenous Shunt: No Cardiac Surgery: No Coronary Artery Bypass Graft: No Ear Surgery: No Endocrine Surgery: No Eye Surgery: No Genitourinary Surgery: Yes (R KIDNEY TRANSPLANT 2000) Gynecologic Surgery: Yes (TUBAL LIGATION MAR 1982) Insulin Pump: No Joint Replacement: No Neurologic Surgery: No Oral Surgery: No Pacemaker: No Thoracic Surgery: No Other Surgery: Yes Social History Alcohol Use: No Tobacco Use: No Substance Use: No Allergies-Medications (Allergen,Severity, Reaction): Coded Allergies: gabapentin (Unverified Allergy, Intermediate, Nausea/Vomiting, 04/15/17) pramipexole (Unverified Adverse Reaction, Severe, vomiting, 04/15/17) morphine (Unverified Adverse Reaction, Intermediate, ITCH, 04/15/17) pregabalin (Unverified Adverse Reaction, Intermediate, vomiting, 04/15/17) Reported Meds & Prescriptions Reported Meds & Active Scripts Active Clonidine (Clonidine HCl) 0.1 Mg Tab 0.1 Mg PO BID Reported Dulera 120 Act Inh (Mometasone-Formoterol 120 Act Inh) 100-5 Mcg/Act Inh 2 Puff INH BID Alendronate (Alendronate Sodium) 70 Mg Tab 70 Mg PO Q7D Ventolin Hfa 18 GM Inh (Albuterol Sulfate) 90 Mcg/Act Aer 1 Puff INH BID PRN Vitamin D3 (Cholecalciferol) 5,000 Unit Cap 5,000 Units PO DAILY Losartan (Losartan Potassium) 50 Mg Tab 50 Mg PO BID Intuniv (Guanfacine HCl) 2 Mg Chris 2 Mg PO HS Do not crush, chew or divide tablet. Take with a meal. Metformin ER (Metformin HCl) 500 Mg Chris 500 Mg PO TID With evening meal Pantoprazole (Pantoprazole Sodium) 40 Mg Tab 40 Mg PO DAILY Rapamune (Sirolimus) 1 Mg Tab 5 Mg PO DAILY Zocor (Simvastatin) 10 Mg Tab 20 Mg PO HS Glimepiride 2 Mg Tab 1 Mg PO DAILY Propranolol (Propranolol HCl) 20 Mg Tab 20 Mg PO HS Review of Systems Except as stated in HPI: all other systems reviewed are Neg (bleeding from postoperative lateral aspect of her right upper eyelid) Physical Exam Narrative Skin of right evangelical area exam : Patient in the corner of her right eye has a bandage over Steri-Strips in the very medial edge of the incision at the corner of the lateral canthus of the right eye there is a tiny opening in the suture line and a teeny bit of blood. I apply pressure to make it stop and put a Steri -Strip to bring the edges together.GENERAL: SKIN: Warm and dry. HEAD: Atraumatic. Normocephalic. EYES: Pupils equal and round. No scleral icterus. No injection or drainage. ENT: No nasal bleeding or discharge. Mucous membranes pink and moist. NECK: Trachea midline. No JVD. CARDIOVASCULAR: Regular rate and rhythm. BP is 180/80 RESPIRATORY: No accessory muscle use. Clear to auscultation. Breath sounds equal bilaterally. GASTROINTESTINAL: Abdomen soft, non-tender, nondistended. Hepatic and splenic margins not palpable. MUSCULOSKELETAL: Extremities without clubbing, cyanosis, or edema. No obvious deformities. NEUROLOGICAL: Awake and alert. No obvious cranial nerve deficits. Motor grossly within normal limits. Five out of 5 muscle strength in the arms and legs. Normal speech. PSYCHIATRIC: Appropriate mood and affect; insight and judgment normal. Data Data Last Documented VS Vital Signs Date Time Temp Pulse Resp B/P (MAP) Pulse Ox O2 Delivery O2 Flow Rate FiO2 04/15/17 22:38 62 18 175/77 (109) 99 Room Air 04/15/17 19:40 97.9 Orders Orders Clonidine (Catapres) (04/15/17 22:00) Ed Discharge Order (04/15/17 23:01) Ed Discharge Order (04/15/17 23:01) [facility] Medical Decision Making Medical Screen Exam Complete: Yes Emergency Medical Condition: Yes Differential Diagnosis Stoppered bleeding versus arterial bleeding versus oozing of blood postoperatively Narrative Course I put a Steri-Strip across the very edge of her lateral left canthus and I hold pressure over the Steri-Strip for 10 minutes bedside it stopped bleeding after 10 minutes she felt a tear and she wiped and she said it was blood I went back gave her clonidine 0.1 mg to lower her blood pressure which was 200 systolic on arrival was 180 on repeat to lower the pressure on the pain and then I hold pressure again and show the patient had it put pressure on the Steri-Strip I've applied and feel the patient can follow up as an outpatient to call the salon receptionist in the a.m. family is comfortable with this plan I also told apply ice to help vasoconstrict the small venule discharged home clonidine prescription for 0.1 mg twice a day for 2 days Procedures Procedure Narrative Procedure :I placed a 1 more Steri-Strip on the corner of the eye trying to pull together the edges of the incision right at the lateral canthus area of the right eye. Hold pressure for 10 minutes the bleeding has stopped after about 10 minutes more eyelid the patient open her eye and she is not bleeding after about 10 more minutes she wipes a tear of blood and that leads slowly oozing again I show her how to apply pressure and then I tried to hit her blood pressure down clonidine 0.1 mg given. The procedure was a application of 1 Steri-Strip to bring together the edges of the surgical site Scripts Clonidine (Clonidine) 0.1 Mg Tab 0.1 MG PO BID for Blood Pressure Management, #20 TAB 0 Refills Prov: Mic Odom MD 04/15/17 Mic Odom MD Apr 15, 2017 21:34
[2017-04-15 21:46] VITALS: BP 189/86; PULSE 72; RESP 16; O2SAT 98
[2017-04-15 21:56] VITALS: BP 189/86
[2017-04-15] MEDS ORDERED: cloNIDine HCL 0.1 MG TAB PO ONE (22:00)
[2017-04-15 22:38] VITALS: BP 175/77; PULSE 62; RESP 18; O2SAT 99
[2017-04-15] MEDS ORDERED: CLON0.1T PO (23:04)
== END 2017-04-15 21:56 | disposition home or self-care (01) ==
LOC: NEPE 19:39
DX: L76.21 Postprocedural hemorrhage of skin and subcutaneous tissue following a dermatologic procedure (principal); I10 Essential (primary) hypertension; J44.9 Chronic obstructive pulmonary disease, unspecified; E78.00 Pure hypercholesterolemia, unspecified; E11.40 Type 2 diabetes mellitus with diabetic neuropathy, unspecified; Z88.5 Allergy status to narcotic agent; Z88.8 Allergy status to other drugs, medicaments and biological substances; Z79.899 Other long term (current) drug therapy
CPT/HCPCS: 99283